=== PATIENT | female | born 1965 | race Caucasian/White ===

== ENCOUNTER 2018-05-06 10:08 | Emergency (ER) | payer OTHER ==
[~2018-05-06] VITALS: Ht 165.1 cm; Wt 87.8 kg
[~2018-05-06 10:08] MED LIST: ALPRAZOLAM 0.50.5 M1 PO; AVAPRO300 MG; AZITHROMYCIN 2250 MG PO; BACTRIM DS TAB1 EACH PO; BUSPIRONE HCL10 MG PO; BUTALB-ACETAMI1 EACH PO; CARISOPRODOL; CARISOPRODOL 3350 MG; CARISOPRODOL 3350 MG PO; CATAFLAM50 MG PO; CLEOCIN HCL150 MG PO; EFFEXOR XR75 MG PO; FIORICET PO; FLUOXETINE HCL40 MG; HYDROCODON-ACE1 EAC7 PO; LAMICTAL 25 MG25 M1 PO; LAMICTAL XR100 MG PO; LAMICTAL XR50 MG PO; LAMOTRIGINE150 MG PO; LEVAQUIN 500 M500 M2 PO; LOPRESSOR25; LOPRESSOR25 PO; LORAZEPAM 0.50.5 MG; LOVASTAT20; LOVASTAT20 PO; MAXZIDE-25 MG1 EACH PO; NABUMETONE 500500 M1; NAPROSYN500 MG PO; NASAL SPRAY30 ML; NASONEX17 GM; NEURONTIN 300300 M1 PO; NORCO 5-325 TA1 EAC1 PO; NORCO 5-325 TA1 EACH PO; PAXIL10 MG; PENICILLIN VK250 MG PO; POTASSIUM20 PO; PREMPRO 0.45-11 EACH; PROAIR HFA8.5 GM; ROBAXIN500 MG PO; ULTRAM 50MG TAB50 MG PO; VENLAFAXINE HCL75 M2 PO; VERAPAMIL HCL120 M1; VERAPAMIL HCL120 M4 PO; VERAPAMIL HCL120 MG; VERAPAMIL HCL40 MG PO; VICODIN ES TAB1 EACH; WELLBUTRIN XL300 M1; ZOFRAN4 MG PO
[2018-05-06] MEDS ORDERED: NORCO 5-325 TA1 EACH PO (10:56)
[2018-05-06] MEDS ORDERED: NEURONTIN 300300 M1 PO (10:56)
[2018-05-06] MEDS ORDERED: CARISOPRODOL 3350 MG PO (10:56)
[2018-05-06] MEDS ORDERED: NAPROSYN500 MG PO (10:58)
[2018-05-06 11:04] VITALS: BP 200/90
== END 2018-05-06 11:06 | disposition home or self-care (01) ==
LOC: M.ERS 10:08
DX: M54.6 Pain in thoracic spine (principal); M54.2 Cervicalgia; J45.909 Unspecified asthma, uncomplicated; I10 Essential (primary) hypertension; G43.909 Migraine, unspecified, not intractable, without status migrainosus; F31.9 Bipolar disorder, unspecified; F41.9 Anxiety disorder, unspecified; M54.9 Dorsalgia, unspecified; G89.29 Other chronic pain; F17.210 Nicotine dependence, cigarettes, uncomplicated; Z88.5 Allergy status to narcotic agent; Z88.8 Allergy status to other drugs, medicaments and biological substances

== ENCOUNTER 2018-09-01 12:47 | Emergency (ER) | payer OTHER ==
[~2018-09-01] VITALS: Ht 165.1 cm; Wt 88.0 kg
[2018-09-01 13:04] VITALS: BP 119/71
[2018-09-01] MEDS ORDERED: LISINOPRIL10 MG PO (13:05)
[2018-09-01] MEDS ORDERED: NOVOLOG100 UNIT/1 SUBQ (13:06)
[2018-09-01] MEDS ORDERED: NAPROSYN500 MG PO (13:22)
[2018-09-01] MEDS ORDERED: NORCO 5-325 TA1 EACH PO (13:22)
[2018-09-01] MEDS ORDERED: FLEXERIL PO (13:22)
== END 2018-09-01 13:33 | disposition home or self-care (01) ==
LOC: M.ERS 12:47
DX: G89.29 Other chronic pain (principal); M54.2 Cervicalgia; M54.6 Pain in thoracic spine; J45.909 Unspecified asthma, uncomplicated; I10 Essential (primary) hypertension; G43.909 Migraine, unspecified, not intractable, without status migrainosus; F31.9 Bipolar disorder, unspecified; F41.9 Anxiety disorder, unspecified; F17.210 Nicotine dependence, cigarettes, uncomplicated; Z88.5 Allergy status to narcotic agent; Z88.8 Allergy status to other drugs, medicaments and biological substances

== ENCOUNTER 2020-04-27 10:03 | Emergency (ER) | payer OTHER ==
[~2020-04-27] VITALS: Ht 165.1 cm; Wt 86.2 kg
[~2020-04-27 10:03] MED LIST changes: +FLEXERIL PO; +LISINOPRIL10 MG PO; +NOVOLOG100 UNIT/1 SUBQ
[2020-04-27 10:09] VITALS: BP 220/115
[2020-04-27] MEDS ORDERED: NORCO 5-325 TA1 EAC2 PO (10:30)
[2020-04-27] MEDS ORDERED: FLEXERIL PO (10:30)
== END 2020-04-27 10:38 | disposition home or self-care (01) ==
LOC: M.ERS 10:03
DX: G89.29 Other chronic pain (principal); I10 Essential (primary) hypertension; J45.909 Unspecified asthma, uncomplicated; G43.909 Migraine, unspecified, not intractable, without status migrainosus; F17.210 Nicotine dependence, cigarettes, uncomplicated; Z88.6 Allergy status to analgesic agent; Z88.8 Allergy status to other drugs, medicaments and biological substances; Z79.899 Other long term (current) drug therapy